=== PATIENT | male | born 1965 | race Caucasian/White ===

== ENCOUNTER 2020-03-27 14:50 | Inpatient (IN) | payer OTHER, SELFPAY ==
--- NOTE | ~2020-03-27 | XR_ITS ---
EXAMINATION: XR CHEST CLINICAL INFORMATION: Seizure COMPARISON: None TECHNIQUE: AP portable view of the chest was obtained. FINDINGS: There is no evidence of acute parenchymal disease, pneumothorax, or pleural effusion. Heart normal size. No evidence of pulmonary edema. Old healed fractures evident. XR/XR chest 1V IMPRESSION: No acute disease.
--- NOTE | ~2020-03-27 | CT_ITS ---
EXAMINATION: CT HEAD/BRAIN WITHOUT CONTRAST CLINICAL INFORMATION: Seizure COMPARISON: None. TECHNIQUE: CT scanning from base of skull to vertex performed without IV contrast administration. This CT examination was performed using dose optimization techniques as appropriate, variously including the following: *Automated exposure control *Adjustment of mA and/or kV according to patient size (this includes techniques or standardized protocols for targeted exams where dose is matched to indication/reason for exam; i.e. extremities or head) *Use of iterative reconstruction technique DLP: 739.74 mGy-cm. FINDINGS: There is what appears to be a left frontal parietal infarct which appears old without significant mass effect or midline structure shift. No intracranial hemorrhage is appreciated. No abnormal extra-axial fluid collection. A calcification is seen within the region of encephalomalacia. There is a dense left middle cerebral artery branch and acute on chronic infarct is not excluded however there are other bilateral vascular branches which appear dense and this may not represent an acute process.. There also appears to been an old right cerebellar infarct. There is some periventricular white matter low density consistent with microangiopathy. Calcification of vertebral and carotid arteries present. There is prominence of ventricles, sulci, and cisterns consistent with generalized atrophy. There is some mucosal thickening seen within the paranasal sinuses bilaterally. There is a small air-fluid level seen within the sphenoid sinuses may be related to acute sinusitis. Mastoid air cells are aerated. 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 Question dense left middle cerebral artery branch which may represent acute on chronic infarct but this appears less likely than just an old infarct and if clinically indicated CTA may be of help in further evaluation. 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 TECHNIQUE: Thin helical images with sagittal and coronal reformats. This CT examination was performed using dose optimization techniques as appropriate, variously including the following: *Automated exposure control *Adjustment of mA and/or kV according to patient size (this includes techniques or standardized protocols for targeted exams where dose is matched to indication/reason for exam; i.e. extremities or head) *Use of iterative reconstruction technique DOSE: DLP 359.48 mGy-cm. FINDINGS: No abnormal prevertebral soft tissue swelling is seen. No acute cervical spine fracture is noted. Paraspinal fat planes appear intact. There is degenerative disc space narrowing and spurring seen at the C5-C6 level. There is spurring of joints of Luschka right greater than left at the C5-C6 level causing some mild anterior neural foraminal encroachment. Visualized portions of the temporomandibular joints unremarkable. Pterygoid plates intact. IMPRESSION: No acute cervical spine fracture. Degenerative disc disease C5-C6 level.
--- NOTE | ~2020-03-27 | CT_ITS ---
EXAMINATION: CT ANGIOGRAM HEAD CT ANGIOGRAM NECK CLINICAL INFORMATION: Seizure. Abnormal head CT. COMPARISON: CT head and cervical spine from 03/27/2020. TECHNIQUE: Initial noncontrast optometric technician imaging of the head and neck was performed. Comparison is made with noncontrast head CT from earlier today. Test bolus sequences followed by intravenous administration 70 mL of Omnipaque 350. Helical imaging was performed in the axial plane from the aortic arch to the skull vertex. Delayed postcontrast imaging of the head was also performed. The data was processed at the certified ophthalmic technologist's workstation for generation of MIP sequences. Angled MIPs and volume rendered reformatted images were also generated at an offline 3D workstation. Stenoses are assessed in accordance with NASCET criteria unless otherwise indicated. DLP: 1503 mGy-cm FINDINGS: CT Head: There is no evidence of acute intracranial hemorrhage chronic encephalomalacia or edematous territorial infarction. Moderate scattered hypoattenuation in the periventricular and deep white matter. Chronic appearing encephalomalacia throughout the left frontal lobe. No evidence of additional loss of whittington-white matter differentiation. Proportional prominence of the ventricles and sulcal spaces. No evidence for obstructive hydrocephalus. No abnormal mass effect or midline shift. No extra-axial fluid collections. No pathologic intra-axial enhancement or regional oligemia. No acute soft tissue or osseous abnormalities. Moderate mucosal thickening of the paranasal sinuses. The mastoid air cells and middle ear cavities are clear. CT Neck: The thyroid gland and remaining cervical soft tissues are within normal limits. Moderate degenerative disc disease from C3-C6 with disc-osteophyte complex formation. Facet and uncovertebral joint arthropathy with osseous encroachment on the neural foramina at C5-C6. CT Upper Chest: The visualized lung apices and upper mediastinum are within normal limits. Neck CTA: Aortic Arch: Normal contour and caliber. Classic 3 vessel branching pattern of the aortic arch. Great Vessel Origins: No significant stenosis of the branch origins. Right Common Carotid Artery: Normal opacification without focal stenosis or occlusion. Cervical Right Internal Carotid Artery: Mild calcific atherosclerotic disease of the carotid bulb and proximal internal carotid artery without flow-limiting stenosis. Left Common Carotid Artery: Normal opacification without focal stenosis or occlusion. Cervical Left Internal Carotid Artery: Mild calcific atherosclerotic disease of the carotid bulb and proximal internal carotid artery without flow-limiting stenosis. Cervical Right Vertebral Artery: Normal opacification without focal stenosis or occlusion. Cervical Left Vertebral Artery: Dominant. Normal opacification without focal stenosis or occlusion. Brain CTA: Intracranial Internal Carotid Arteries: Mild calcific atherosclerotic disease of the intracranial internal carotid arteries without occlusion or flow-limiting stenosis. Normal contrast opacification of the petrous, cavernous, paraophthalmic, and supraclinoid segments of the internal carotid arteries without focal stenosis. Right Anterior Cerebral Artery: Normal A1 segment. Normal opacification of the distal segments of the GREYSON. Left Anterior Cerebral Artery: Normal A1 segment. Normal opacification of the distal segments of the GREYSON. Anterior Communicating Artery: Normal. Right Middle Cerebral Artery: Normal opacification of the M1 segment of the MCA without focal stenosis or occlusion. Normal arborization of the distal segments. Left Middle Cerebral Artery: Normal opacification of the M1 segment of the MCA without focal stenosis or occlusion. Normal arborization of the distal segments. Right Vertebral Artery: Normal opacification of the V4 segment. Normal opacification of the proximal segments of the posterior inferior cerebellar artery. Left Vertebral Artery: Normal opacification of the V4 segment. The posterior inferior cerebellar artery is not well opacified; however, there is no CT evidence of acute occlusion. Basilar Artery: Normal opacification without focal stenosis or occlusion. Normal appearance of the proximal superior cerebellar arteries. Right Posterior Cerebral Artery: Normal P1 segment. Normal opacification of the distal segments of the FAMILY MEDIATOR. Left Posterior Cerebral Artery: Normal P1 segment. Normal posterior communicating artery. Normal opacification of the distal segments of the FAMILY MEDIATOR. Normal opacification of the superior sagittal, straight, transverse, and sigmoid sinuses. CT/CT angio head neck IMPRESSION: 1. No evidence of acute intracranial hemorrhage or edematous territorial infarction. Chronic encephalomalacia of the left frontal lobe. Moderate nonspecific white matter disease. 2. CTA of the head and neck without proximal occlusion or flow-limiting stenosis.
[2020-03-27 15:08] VITALS: BP 168/98; PULSE 73; RESP 15; TEMP 36.2; O2SAT 97; O2SAT 99; BMI 27.7
--- NOTE | 2020-03-27 15:18 | ECG_ITS ---
Test Reason : SEIZURE Blood Pressure : / mmHG Vent. Rate : 066 BPM Atrial Rate : 066 BPM P-R Int : 152 ms QRS Dur : 090 ms QT Int : 394 ms P-R-T Axes : 026 065 059 degrees QTc Int : 413 ms Normal sinus rhythm Normal ECG No previous ECGs available Referred By: Soy Alexander Electronically Signed By:Mumtaz Robison
[2020-03-27 17:04] LABS: MANUAL DIFF FLAG NO
[2020-03-27 17:05] LABS: Basophils Absolute Auto 0.1 X10*3/uL (0.0-0.2); Basophils Percent Auto 0.5 % (0-2); Eosinophils Percent Auto 0.2 % (0-4); Hematocrit 41.7 % (42-52); Hemoglobin 14.2 g/dl (14.0-18.0); Imm Gran Abs Auto 0.04 X10*3/uL (0.00-0.03); Imm Gran Pct Auto 0.4 % (0.0-0.4); Lymphocytes Absolute Auto 0.8 X10*3/uL (1.2-4.9); Lymphocytes Percent Auto 8.3 % (20-40); Mean Corpuscular HGB Conc 34.1 g/dl (31.0-36.0); Mean Corpuscular Hemoglobin 33.1 pg (27.0-33.0); Mean Corpuscular Volume 97.2 fL (80-98); Mean Platelet Volume 8.8 fL (9.4-12.4); Monocytes Absolute Auto 0.3 X10*3/uL (0.1-1.2); Monocytes Percent Auto 3.4 % (2-11); Neutrophils Absolute Auto 8.1 X10*3/uL (2.0-8.3); Neutrophils Percent Auto 87.2 % (45-73); Platelet Count 226 X10*3/uL (160-400); Red Blood Count 4.29 X10*6/uL (4.60-5.80); White Blood Count 9.2 X10*3/uL (4.8-10.8)
[2020-03-27 17:11] LABS: INTERNATIONAL NORM RATIO 0.9 (0.9-1.1); Prothrombin Time 10.4 SEC (10.8-13.0)
[2020-03-27 17:14] LABS: Partial Thromboplastin Time 27.6 SEC (24.1-38.0)
[2020-03-27 17:25] LABS: COVID-19 Test Negative (Negative); IDNOW Serial# 9DD0AD1C
[2020-03-27 17:27] LABS: Ethanol < 10 mg/dL
--- NOTE | 2020-03-27 17:29 | ED_ITS ---
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 Apparently he has a history of seizures as well as alcohol abuse. Upon arrival history very limited secondary to the postictal state and being medicated I spoke to his mother Jessica whom I called from his cell phone as he has no prior visits here at [phone] States to me that patient has had history of seizure since 2014 after suffering a head injury and has been on Lamictal and Keppra there is some compliance issue with this also he is a known alcoholic and will occasionally binge drink states when he stops drinking he will also have seizures and she knows that he drank a couple days ago but has not seen him as these and now and does not drink around her. <Soy Alexander NP - Last Filed: 03/27/20 18:57> MD complaint: seizure <Soy Alexander NP - Last Filed: 03/27/20 18:57> Onset (ago): minute(s) <Soy Alexander NP - Last Filed: 03/27/20 18:57> Description of Episode: loss of consciousness and tonic-clonic movement <Soy Alexander NP - Last Filed: 03/27/20 18:57> -: minutes(s) <Soy Alexander NP - Last Filed: 03/27/20 18:57> Witnessed: Yes - by EMS <Soy Alexander NP - Last Filed: 03/27/20 18:57> Seizure History: Yes <Soy Alexander NP - Last Filed: 03/27/20 18:57> Place: Was at a construction site with his friends <Soy Alexander NP - Last Filed: 03/27/20 18:57> Possible Precipitating Event: none <Soy Alexander NP - Last Filed: 03/27/20 18:57> Treatments prior to arrival: other (Versed IV 6 mg) <Soy Alexander NP - Last Filed: 03/27/20 18:57> Related Data Home Medications: Home Medications Medication Instructions Recorded Confirmed amlodipine 2.5 mg PO DAILY 03/27/20 03/27/20 levetiracetam 1,500 mg PO BID 03/27/20 03/27/20 oxcarbazepine 450 mg PO BID 03/27/20 03/27/20 <Soy Alexander NP - Last Filed: 03/27/20 18:57> Allergies/Adverse Reactions: Allergies Allergy/AdvReac Type Severity Reaction Status Date / Time No Known Allergies Allergy Verified 03/27/20 15:17 <Soy Alexander NP - Last Filed: 03/27/20 18:57> Review of Systems Review of Systems: Yes Unobtainable due to mental condition and Unobtainable due to mental status <Soy Alexander NP - Last Filed: 03/27/20 18:57> [facility] Social History Social History: Social History Alcohol intake: never Smoking Status: Never smoker Use of substances other than those prescribed or required for medical reasons: No Advance Directives: No Advance Directives Information Provided: Yes <Soy Alexander NP - Last Filed: 03/27/20 18:57> Physical Exam Vital Signs: Vital Signs: Last Vital Signs Temp 97.2 F 03/27/20 15:08 Pulse 68 03/27/20 19:18 Resp 12 03/27/20 19:18 BP 161/83 H 03/27/20 19:18 Pulse Ox 100 03/27/20 19:18 Body Mass Index 27.7 Reviewed <Soy Alexander NP - Last Filed: 03/27/20 18:57> Vital Signs: Last Vital Signs Temp 97.2 F 03/27/20 15:08 Pulse 68 03/27/20 19:18 Resp 12 03/27/20 19:18 BP 161/83 H 03/27/20 19:18 Pulse Ox 100 03/27/20 19:18 Body Mass Index 27.7 <PINA Bello - Last Filed: 03/27/20 20:42> Const: Other: Postictal appearing <Soy RICHARD Alexander - Last Filed: 03/27/20 18:57> General: lethargic <[facility] RICHARD Alexander - Last Filed: 03/27/20 18:57> Nutritional Appearance: average body habitus <Soy RICHARD Alexander - Last Filed: 03/27/20 18:57> Orientation/consciousness: lethargic <[facility] RICHARD Alexander - Last Filed: 03/27/20 18:57> HENMT: Head: Yes normal to inspection <[facility] RICHARD Alexander - Last Filed: 03/27/20 18:57> Ears: hearing grossly normal bilaterally <[facility] RICHARD Alexander - Last Filed: 03/27/20 18:57> Eyes: General: appearance normal, both eyes and all related structures <Soy RICHARD Alexander - Last Filed: 03/27/20 18:57> Visual Wood: normal visual wood by confrontation <[facility] RICHARD Alexander - Last Filed: 03/27/20 18:57> Neck: Neck: Yes normal visual inspection, No positive Brudzinski's sign, No positive Kernig's sign and No tender <Syo RICHARD Alexander - Last Filed: 03/27/20 18:57> Thyroid: Thyroid normal <[facility] RICHARD Alexander - Last Filed: 03/27/20 18:57> Chest: Chest palpation & inspection: normal inspection of the chest <Soy RICHARD Alexander - Last Filed: 03/27/20 18:57> Resp: Effort & Inspection: normal respiratory effort <[facility] RICHARD Alexander - Last Filed: 03/27/20 18:57> Auscultation: clear to auscultation bilaterally <Soy RICHARD Alexander - Last Filed: 03/27/20 18:57> Cardio: Jugular venous distension: no JVD <Soy RICHARD Alexander - Last Filed: 03/27/20 18:57> Rhythm: regular rhythm <Soy RICHARD Alexander - Last Filed: 03/27/20 18:57> Heart sounds: S1 normal heart sound present and S2 normal heart sound present <Soy RICHARD Alexander - Last Filed: 03/27/20 18:57> GI: Inspection: Yes normal to inspection <Soy RICHARD Alexander - Last Filed: 03/27/20 18:57> Palpation (GI): Soft to palpation <Soy RICHARD Alexander - Last Filed: 03/27/20 18:57> Percussion: Yes normal to percussion <Soy RICHARD Alexander - Last Filed: 03/27/20 18:57> Auscultation: normal bowel sounds <Soyluis Alexander NP - Last Filed: 03/27/20 18:57> : General: Yes no CVA tenderness <Soyluis Alexander NP - Last Filed: 03/27/20 18:57> Back/Spine/Pelvis: Back: no CVA tenderness <Soyluis Alexander NP - Last Filed: 03/27/20 18:57> Skin: General skin exam: no rashes or lesions noted <Soyluis Alexander NP - Last Filed: 03/27/20 18:57> Extrem: General: Yes normal to inspection <Soyluis Alexander NP - Last Filed: 03/27/20 18:57> Course Course Course Narrative: Case was signed out to me at 18:30 by 5 nurse practitioner Benjamin to follow CT a in a patient who was having a prolonged post ictal. After a seizure and potential alcohol withdrawal CTA did not have any acute findings, patient is still confused but did understand he would be admitted to the hospital, case was discussed with hospitalist who accepted the admission and patient was admitted to the hospital, there is a full no written by RICHARD Alexander <PINA Bello - Last Filed: 03/27/20 20:42> Reevaluation(s) Reevaluation #1: Still appears postictal I spoke to his mother agreeable that he needs to be admitted for observation. He is more lucid however he just keeps saying no to all answers. Speech intelligible. He is saying no to admission however he is unable to make his own decisions given his current state. Given dose of IV Ativan plan remains for admission. <Soy Alexander NP - Last Filed: 03/27/20 18:57> MDM - Seizure MDM Narrative Medical decision making narrative: In review 55-year-old male with known history of seizures on Lamictal and Keppra question compliance with this also history of alcohol abuse presenting with 3 seizures of about 5 minutes long in the course of a half an hour witnessed by EMS requiring 6 mg of IV Versed arriving in postictal state apparently has history of seizures in the setting of this as well as the withdrawal. Given dose of Keppra. History limited given that he is in postictal state CT of the head and neck along with chest x-ray and labs done given no prior history here. 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 Question dense left middle cerebral artery branch which may represent acute on chronic infarct but this appears less likely than just an old infarct and if clinically indicated CTA may be of help in further evaluation. Case discussed with attending agreeable to obtaining CT angio plan for admission. Case discussed with Kasia hospitalist requesting awaiting the results of the CTA head neck prior to accepting patient to service. 1814 Patient remains stable awaiting results of the CT angio. I will sign out case to Mary RAMOS pending these results and plan for admission. Aware that I spoken to the hospitalist team and aware the patient. <Soy Alexander NP - Last Filed: 03/27/20 18:57> Differential Diagnosis Differential diagnosis: Likely intractable seizure disorder and generalized seizure (Alcohol withdrawal, electrolyte derangement,); Unlikely febrile convulsion, focal seizure, new onset seizure, epileptic seizure and status epilepticus <Soy Alexander NP - Last Filed: 03/27/20 18:57> Medical Records Attestation: I reviewed the patient's medical records. <Soy Alexander NP - Last Filed: 18:57> Lab Data Attestation: I reviewed the patient's lab results. <RICHARD Grace Last Filed: 03/12 07/30 18:57> Result diagrams: : 03/27/20 16:57 03/27/20 16:57 <Soy Alexander [employer] [facility] - Last Filed: 03/27/20 18:57> Labs: Lab Results 03/27/20 03/27/20 03/27/20 Range/Units 16:57 16:57 16:57 WBC 9.2 (4.8-10.8) X10*3/uL RBC 4.29 L (4.60-5.80) X10*6/uL Hgb 14.2 (14.0-18.0) g/dl Hct 41.7 L (42-52) % MCV 97.2 (80-98) fL MCH 33.1 H (27.0-33.0) pg MCHC 34.1 (31.0-36.0) g/dl RDW 13.0 (11.0-16.0) % Plt Count 226 (160-400) X10*3/uL MPV 8.8 L (9.4-12.4) fL Immature Gran % (Auto) 0.4 (0.0-0.4) % Neut % (Auto) 87.2 H (45-73) % Lymph % (Auto) 8.3 L (20-40) % [place] % (Auto) 3.4 (2-11) % Eos % (Auto) 0.2 (0-4) % Baso % (Auto) 0.5 (0-2) % Lymph # (Auto) 0.8 L (1.2-4.9) X10*3/uL [place] # (Auto) 0.3 (0.1-1.2) X10*3/uL Eos # (Auto) 0.0 (0.0-0.4) X10*3/uL Baso # (Auto) 0.1 (0.0-0.2) X10*3/uL Abs Immat Gran (auto) 0.04 H (0.00-0.03) X10*3/uL Absolute Neuts (auto) 8.1 (2.0-8.3) X10*3/uL Absolute Nucleated RBC 0.000 (0.0-0.012) X10*3/uL Nucleated RBC % (auto) 0.0 (0.0-0.2) /100WBC PT 10.4 L (10.8-13.0) SEC INR 0.9 (0.9-1.1) APTT 27.6 (24.1-38.0) SEC Sodium 140 (135-145) mmol/L Potassium 4.2 (3.3-5.1) mmol/L Chloride 106 (96-108) mmol/L Carbon Dioxide 25 (22-29) mmol/L Anion Gap 13 (12-20) BUN 11 (9-16) mg/dL Creatinine 0.81 (0.5-1.4) mg/dL Estim Creat Clear Calc 117.8 Estimated GFR > 60 Random Glucose 89 (60-115) mg/dL Calcium 8.9 (8.4-10.2) mg/dL Magnesium 2.0 (1.6-2.6) mg/dL Total Bilirubin 0.7 (0.0-1.0) mg/dL AST 26 (5-37) U/L ALT 16 (0-40) U/L Alkaline Phosphatase 64 (39-117) U/L Troponin I High Sens (<3.5-35.0) ng/L Total Protein 6.8 (6.5-8.0) g/dL Albumin 4.3 (3.5-5.0) g/dL Urine Color Urine Appearance Urine pH (5.0-8.0) Ur Specific [place] (1.005-1.025) Urine Protein (NEG-TRACE) MG/DL Urine Glucose (UA) (NEG) MG/DL Urine Ketones (NEG) MG/DL Urine Blood (NEG) Urine Nitrite (NEG) Ur Leukocyte Esterase (NEG) Urine RBC (0) /HPF Urine WBC (0-4) /HPF Ur Squamous Epith Cells /LPF Urine Bacteria /LPF Urine Opiates Screen (Not Detect) Ur Barbiturates Screen (Not Detect) Ur Phencyclidine Scrn (Not Detect) Ur Amphetamines Screen (Not Detect) U Benzodiazepines Scrn (Not Detect) Urine Cocaine Screen (Not Detect) U Marijuana (THC) Screen (Not Detect) Ethyl Alcohol mg/dL COVID-19 (VIPIN) (Negative) COVID-19 Clin Com 03/27/20 03/27/20 03/27/20 Range/Units 16:57 16:57 16:57 WBC (4.8-10.8) X10*3/uL RBC (4.60-5.80) X10*6/uL Hgb (14.0-18.0) g/dl Hct (42-52) % MCV (80-98) fL MCH (27.0-33.0) pg MCHC (31.0-36.0) g/dl RDW (11.0-16.0) % Plt Count (160-400) X10*3/uL MPV (9.4-12.4) fL Immature Gran % (Auto) (0.0-0.4) % Neut % (Auto) (45-73) % Lymph % (Auto) (20-40) % [place] % (Auto) (2-11) % Eos % (Auto) (0-4) % Baso % (Auto) (0-2) % Lymph # (Auto) (1.2-4.9) X10*3/uL [place] # (Auto) (0.1-1.2) X10*3/uL Eos # (Auto) (0.0-0.4) X10*3/uL Baso # (Auto) (0.0-0.2) X10*3/uL Abs Immat Gran (auto) (0.00-0.03) X10*3/uL Absolute Neuts (auto) (2.0-8.3) X10*3/uL Absolute Nucleated RBC (0.0-0.012) X10*3/uL Nucleated RBC % (auto) (0.0-0.2) /100WBC PT (10.8-13.0) SEC INR (0.9-1.1) APTT (24.1-38.0) SEC Sodium (135-145) mmol/L Potassium (3.3-5.1) mmol/L Chloride (96-108) mmol/L Carbon Dioxide (22-29) mmol/L Anion Gap (12-20) BUN (9-16) mg/dL Creatinine (0.5-1.4) mg/dL Estim Creat Clear Calc Estimated GFR Random Glucose (60-115) mg/dL Calcium (8.4-10.2) mg/dL Magnesium (1.6-2.6) mg/dL Total Bilirubin (0.0-1.0) mg/dL AST (5-37) U/L ALT (0-40) U/L Alkaline Phosphatase (39-117) U/L Troponin I High Sens 6.0 (<3.5-35.0) ng/L Total Protein (6.5-8.0) g/dL Albumin (3.5-5.0) g/dL Urine Color Urine Appearance Urine pH (5.0-8.0) Ur Specific [place] (1.005-1.025) Urine Protein (NEG-TRACE) MG/DL Urine Glucose (UA) (NEG) MG/DL Urine Ketones (NEG) MG/DL Urine Blood (NEG) Urine Nitrite (NEG) Ur Leukocyte Esterase (NEG) Urine RBC (0) /HPF Urine WBC (0-4) /HPF Ur Squamous Epith Cells /LPF Urine Bacteria /LPF Urine Opiates Screen (Not Detect) Ur Barbiturates Screen (Not Detect) Ur Phencyclidine Scrn (Not Detect) Ur Amphetamines Screen (Not Detect) U Benzodiazepines Scrn (Not Detect) Urine Cocaine Screen (Not Detect) U Marijuana (THC) Screen (Not Detect) Ethyl Alcohol < 10 mg/dL COVID-19 (VIPIN) Negative (Negative) COVID-19 Clin Com See Note 03/27/20 03/27/20 Range/Units 19:52 19:52 WBC (4.8-10.8) X10*3/uL RBC (4.60-5.80) X10*6/uL Hgb (14.0-18.0) g/dl Hct (42-52) % MCV (80-98) fL MCH (27.0-33.0) pg MCHC (31.0-36.0) g/dl RDW (11.0-16.0) % Plt Count (160-400) X10*3/uL MPV (9.4-12.4) fL Immature Gran % (Auto) (0.0-0.4) % Neut % (Auto) (45-73) % Lymph % (Auto) (20-40) % [place] % (Auto) (2-11) % Eos % (Auto) (0-4) % Baso % (Auto) (0-2) % Lymph # (Auto) (1.2-4.9) X10*3/uL [place] # (Auto) (0.1-1.2) X10*3/uL Eos # (Auto) (0.0-0.4) X10*3/uL Baso # (Auto) (0.0-0.2) X10*3/uL Abs Immat Gran (auto) (0.00-0.03) X10*3/uL Absolute Neuts (auto) (2.0-8.3) X10*3/uL Absolute Nucleated RBC (0.0-0.012) X10*3/uL Nucleated RBC % (auto) (0.0-0.2) /100WBC PT (10.8-13.0) SEC INR (0.9-1.1) APTT (24.1-38.0) SEC Sodium (135-145) mmol/L Potassium (3.3-5.1) mmol/L Chloride (96-108) mmol/L Carbon Dioxide (22-29) mmol/L Anion Gap (12-20) BUN (9-16) mg/dL Creatinine (0.5-1.4) mg/dL Estim Creat Clear Calc Estimated GFR Random Glucose (60-115) mg/dL Calcium (8.4-10.2) mg/dL Magnesium (1.6-2.6) mg/dL Total Bilirubin (0.0-1.0) mg/dL AST (5-37) U/L ALT (0-40) U/L Alkaline Phosphatase (39-117) U/L Troponin I High Sens (<3.5-35.0) ng/L Total Protein (6.5-8.0) g/dL Albumin (3.5-5.0) g/dL Urine Color YELLOW Urine Appearance CLEAR Urine pH 7.0 (5.0-8.0) Ur Specific [place] 1.020 (1.005-1.025) Urine Protein NEG (NEG-TRACE) MG/DL Urine Glucose (UA) NEG (NEG) MG/DL Urine Ketones NEG (NEG) MG/DL Urine Blood NEG (NEG) Urine Nitrite NEG (NEG) Ur Leukocyte Esterase NEG (NEG) Urine RBC 0-2 (0) /HPF Urine WBC 0-2 (0-4) /HPF Ur Squamous Epith Cells TRACE /LPF Urine Bacteria TRACE /LPF Urine Opiates Screen Not Detected (Not Detect) Ur Barbiturates Screen Not Detected (Not Detect) Ur Phencyclidine Scrn Not Detected (Not Detect) Ur Amphetamines Screen Not Detected (Not Detect) U Benzodiazepines Scrn POSITIVE H (Not Detect) Urine Cocaine Screen Not Detected (Not Detect) U Marijuana (THC) Screen POSITIVE H (Not Detect) Ethyl Alcohol mg/dL COVID-19 (VIPIN) (Negative) COVID-19 Clin Com <Soy Benjamin [employer] [facility] - Last Filed: 03/27/20 18:57> Lab Results 03/27/20 03/27/20 03/27/20 Range/Units 16:57 16:57 16:57 WBC 9.2 (4.8-10.8) X10*3/uL RBC 4.29 L (4.60-5.80) X10*6/uL Hgb 14.2 (14.0-18.0) g/dl Hct 41.7 L (42-52) % MCV 97.2 (80-98) fL MCH 33.1 H (27.0-33.0) pg MCHC 34.1 (31.0-36.0) g/dl RDW 13.0 (11.0-16.0) % Plt Count 226 (160-400) X10*3/uL MPV 8.8 L (9.4-12.4) fL Immature Gran % (Auto) 0.4 (0.0-0.4) % Neut % (Auto) 87.2 H (45-73) % Lymph % (Auto) 8.3 L (20-40) % [place] % (Auto) 3.4 (2-11) % Eos % (Auto) 0.2 (0-4) % Baso % (Auto) 0.5 (0-2) % Lymph # (Auto) 0.8 L (1.2-4.9) X10*3/uL [place] # (Auto) 0.3 (0.1-1.2) X10*3/uL Eos # (Auto) 0.0 (0.0-0.4) X10*3/uL Baso # (Auto) 0.1 (0.0-0.2) X10*3/uL Abs Immat Gran (auto) 0.04 H (0.00-0.03) X10*3/uL Absolute Neuts (auto) 8.1 (2.0-8.3) X10*3/uL Absolute Nucleated RBC 0.000 (0.0-0.012) X10*3/uL Nucleated RBC % (auto) 0.0 (0.0-0.2) /100WBC PT 10.4 L (10.8-13.0) SEC INR 0.9 (0.9-1.1) APTT 27.6 (24.1-38.0) SEC Sodium 140 (135-145) mmol/L Potassium 4.2 (3.3-5.1) mmol/L Chloride 106 (96-108) mmol/L Carbon Dioxide 25 (22-29) mmol/L Anion Gap 13 (12-20) BUN 11 (9-16) mg/dL Creatinine 0.81 (0.5-1.4) mg/dL Estim Creat Clear Calc 117.8 Estimated GFR > 60 Random Glucose 89 (60-115) mg/dL Calcium 8.9 (8.4-10.2) mg/dL Magnesium 2.0 (1.6-2.6) mg/dL Total Bilirubin 0.7 (0.0-1.0) mg/dL AST 26 (5-37) U/L ALT 16 (0-40) U/L Alkaline Phosphatase 64 (39-117) U/L Troponin I High Sens (<3.5-35.0) ng/L Total Protein 6.8 (6.5-8.0) g/dL Albumin 4.3 (3.5-5.0) g/dL Urine Color Urine Appearance Urine pH (5.0-8.0) Ur Specific [place] (1.005-1.025) Urine Protein (NEG-TRACE) MG/DL Urine Glucose (UA) (NEG) MG/DL Urine Ketones (NEG) MG/DL Urine Blood (NEG) Urine Nitrite (NEG) Ur Leukocyte Esterase (NEG) Urine RBC (0) /HPF Urine WBC (0-4) /HPF Ur Squamous Epith Cells /LPF Urine Bacteria /LPF Urine Opiates Screen (Not Detect) Ur Barbiturates Screen (Not Detect) Ur Phencyclidine Scrn (Not Detect) Ur Amphetamines Screen (Not Detect) U Benzodiazepines Scrn (Not Detect) Urine Cocaine Screen (Not Detect) U Marijuana (THC) Screen (Not Detect) Ethyl Alcohol mg/dL COVID-19 (VIPIN) (Negative) COVID-19 Clin Com 03/27/20 03/27/20 03/27/20 Range/Units 16:57 16:57 16:57 WBC (4.8-10.8) X10*3/uL RBC (4.60-5.80) X10*6/uL Hgb (14.0-18.0) g/dl Hct (42-52) % MCV (80-98) fL MCH (27.0-33.0) pg MCHC (31.0-36.0) g/dl RDW (11.0-16.0) % Plt Count (160-400) X10*3/uL MPV (9.4-12.4) fL Immature Gran % (Auto) (0.0-0.4) % Neut % (Auto) (45-73) % Lymph % (Auto) (20-40) % [place] % (Auto) (2-11) % Eos % (Auto) (0-4) % Baso % (Auto) (0-2) % Lymph # (Auto) (1.2-4.9) X10*3/uL [place] # (Auto) (0.1-1.2) X10*3/uL Eos # (Auto) (0.0-0.4) X10*3/uL Baso # (Auto) (0.0-0.2) X10*3/uL Abs Immat Gran (auto) (0.00-0.03) X10*3/uL Absolute Neuts (auto) (2.0-8.3) X10*3/uL Absolute Nucleated RBC (0.0-0.012) X10*3/uL Nucleated RBC % (auto) (0.0-0.2) /100WBC PT (10.8-13.0) SEC INR (0.9-1.1) APTT (24.1-38.0) SEC Sodium (135-145) mmol/L Potassium (3.3-5.1) mmol/L Chloride (96-108) mmol/L Carbon Dioxide (22-29) mmol/L Anion Gap (12-20) BUN (9-16) mg/dL Creatinine (0.5-1.4) mg/dL Estim Creat Clear Calc Estimated GFR Random Glucose (60-115) mg/dL Calcium (8.4-10.2) mg/dL Magnesium (1.6-2.6) mg/dL Total Bilirubin (0.0-1.0) mg/dL AST (5-37) U/L ALT (0-40) U/L Alkaline Phosphatase (39-117) U/L Troponin I High Sens 6.0 (<3.5-35.0) ng/L Total Protein (6.5-8.0) g/dL Albumin (3.5-5.0) g/dL Urine Color Urine Appearance Urine pH (5.0-8.0) Ur Specific [place] (1.005-1.025) Urine Protein (NEG-TRACE) MG/DL Urine Glucose (UA) (NEG) MG/DL Urine Ketones (NEG) MG/DL Urine Blood (NEG) Urine Nitrite (NEG) Ur Leukocyte Esterase (NEG) Urine RBC (0) /HPF Urine WBC (0-4) /HPF Ur Squamous Epith Cells /LPF Urine Bacteria /LPF Urine Opiates Screen (Not Detect) Ur Barbiturates Screen (Not Detect) Ur Phencyclidine Scrn (Not Detect) Ur Amphetamines Screen (Not Detect) U Benzodiazepines Scrn (Not Detect) Urine Cocaine Screen (Not Detect) U Marijuana (THC) Screen (Not Detect) Ethyl Alcohol < 10 mg/dL COVID-19 (VIPIN) Negative (Negative) COVID-19 Clin Com See Note 03/27/20 03/27/20 Range/Units 19:52 19:52 WBC (4.8-10.8) X10*3/uL RBC (4.60-5.80) X10*6/uL Hgb (14.0-18.0) g/dl Hct (42-52) % MCV (80-98) fL MCH (27.0-33.0) pg MCHC (31.0-36.0) g/dl RDW (11.0-16.0) % Plt Count (160-400) X10*3/uL MPV (9.4-12.4) fL Immature Gran % (Auto) (0.0-0.4) % Neut % (Auto) (45-73) % Lymph % (Auto) (20-40) % [place] % (Auto) (2-11) % Eos % (Auto) (0-4) % Baso % (Auto) (0-2) % Lymph # (Auto) (1.2-4.9) X10*3/uL [place] # (Auto) (0.1-1.2) X10*3/uL Eos # (Auto) (0.0-0.4) X10*3/uL Baso # (Auto) (0.0-0.2) X10*3/uL Abs Immat Gran (auto) (0.00-0.03) X10*3/uL Absolute Neuts (auto) (2.0-8.3) X10*3/uL Absolute Nucleated RBC (0.0-0.012) X10*3/uL Nucleated RBC % (auto) (0.0-0.2) /100WBC PT (10.8-13.0) SEC INR (0.9-1.1) APTT (24.1-38.0) SEC Sodium (135-145) mmol/L Potassium (3.3-5.1) mmol/L Chloride (96-108) mmol/L Carbon Dioxide (22-29) mmol/L Anion Gap (12-20) BUN (9-16) mg/dL Creatinine (0.5-1.4) mg/dL Estim Creat Clear Calc Estimated GFR Random Glucose (60-115) mg/dL Calcium (8.4-10.2) mg/dL Magnesium (1.6-2.6) mg/dL Total Bilirubin (0.0-1.0) mg/dL AST (5-37) U/L ALT (0-40) U/L Alkaline Phosphatase (39-117) U/L Troponin I High Sens (<3.5-35.0) ng/L Total Protein (6.5-8.0) g/dL Albumin (3.5-5.0) g/dL Urine Color YELLOW Urine Appearance CLEAR Urine pH 7.0 (5.0-8.0) Ur Specific [place] 1.020 (1.005-1.025) Urine Protein NEG (NEG-TRACE) MG/DL Urine Glucose (UA) NEG (NEG) MG/DL Urine Ketones NEG (NEG) MG/DL Urine Blood NEG (NEG) Urine Nitrite NEG (NEG) Ur Leukocyte Esterase NEG (NEG) Urine RBC 0-2 (0) /HPF Urine WBC 0-2 (0-4) /HPF Ur Squamous Epith Cells TRACE /LPF Urine Bacteria TRACE /LPF Urine Opiates Screen Not Detected (Not Detect) Ur Barbiturates Screen Not Detected (Not Detect) Ur Phencyclidine Scrn Not Detected (Not Detect) Ur Amphetamines Screen Not Detected (Not Detect) U Benzodiazepines Scrn POSITIVE H (Not Detect) Urine Cocaine Screen Not Detected (Not Detect) U Marijuana (THC) Screen POSITIVE H (Not Detect) Ethyl Alcohol mg/dL COVID-19 (VIPIN) (Negative) COVID-19 Clin Com <PINA Bello - Last Filed: 03/27/20 20:42> Imaging Data Head/neck CT: Radiologist's impression: [address] [id number] Scan ReportSigned Patient: LUIS ALBERTO SEGURA#: [id number]: 1965Acct:[id number]/Sex: 55 / MADM Date: 03/27/20Loc: [email or web address] Dr: Ordering Physician: Soy Alexander NP Date of Service: 03/27/20 Procedure(s): CT cervical spine wo con Accession Number(s): [id number] cc: Soy Alexander NP~ EXAMINATION: CT HEAD/BRAIN WITHOUT CONTRAST CLINICAL INFORMATION: Seizure COMPARISON: None. TECHNIQUE: CT scanning from base of skull to vertex performed without IV contrast administration. This CT examination was performed using dose optimization techniques as appropriate, variously including the following: *Automated exposure control *Adjustment of mA and/or kV according to patient size (this includes techniques or standardized protocols for targeted exams where dose is matched to indication/reason for exam; i.e. extremities or head) *Use of iterative reconstruction technique DLP: 739.74 mGy-cm. FINDINGS: There is what appears to be a left frontal parietal infarct which appears old without significant mass effect or midline structure shift. No intracranial hemorrhage is appreciated. No abnormal extra-axial fluid collection. A calcification is seen within the region of encephalomalacia. There is a dense left middle cerebral artery branch and acute on chronic infarct is not excluded however there are other bilateral vascular branches which appear dense and this may not represent an acute process.. There also appears to been an old right cerebellar infarct. There is some periventricular white matter low density consistent with microangiopathy. Calcification of vertebral and carotid arteries present. There is prominence of ventricles, sulci, and cisterns consistent with generalized atrophy. There is some mucosal thickening seen within the paranasal sinuses bilaterally. There is a small air-fluid level seen within the sphenoid sinuses may be related to acute sinusitis. Mastoid air cells are aerated. 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 Question dense left middle cerebral artery branch which may represent acute on chronic infarct but this appears less likely than just an old infarct and if clinically indicated CTA may be of help in further evaluation. 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 TECHNIQUE: Thin helical images with sagittal and coronal reformats. This CT examination was performed using dose optimization techniques as appropriate, variously including the following: *Automated exposure control *Adjustment of mA and/or kV according to patient size (this includes techniques or standardized protocols for targeted exams where dose is matched to indication/reason for exam; i.e. extremities or head) *Use of iterative reconstruction technique DOSE: DLP 359.48 mGy-cm. FINDINGS: No abnormal prevertebral soft tissue swelling is seen. No acute cervical spine fracture is noted. Paraspinal fat planes appear intact. There is degenerative disc space narrowing and spurring seen at the C5-C6 level. There is spurring of joints of Luschka right greater than left at the C5-C6 level causing some mild anterior neural foraminal encroachment. Visualized portions of the temporomandibular joints unremarkable. Pterygoid plates intact. IMPRESSION: No acute cervical spine fracture. Degenerative disc disease C5-C6 level. Dictated By:SAMANTHA DUNAWAY V MDSigned By:<Electronically signed by SAMANTHA DUNAWAY MD in OV>03/27/20 1635 DD/ 1519TD/TT: Garage Mechanic: SK <Soy Alexander NP - Last Filed: 03/27/20 18:57> Chest x-ray: Radiologist's impression: [address], [place] [address]GKog ReportSigned Patient: LUIS ALBERTO SEGURA#: [id number]: 1965Acct:[id number]/Sex: 55 / MADM Date: 03/27/20Loc: EDAttending Dr: Ordering Physician: Soy Alexander NP Date of Service: 03/27/20 Procedure(s): XR chest 1V Accession Number(s): [id number] cc: Soy Alexander NP~ EXAMINATION: XR CHEST CLINICAL INFORMATION: Seizure COMPARISON: None TECHNIQUE: AP portable view of the chest was obtained. FINDINGS: There is no evidence of acute parenchymal disease, pneumothorax, or pleural effusion. Heart normal size. No evidence of pulmonary edema. Old healed fractures evident. XR/XR chest 1V IMPRESSION: No acute disease. Dictated By:SAMANTHA DUNAWAY V MDSigned By:<Electronically signed by SAMANTHA DUNAWAY MD in OV>03/27/20 1558 DD/ 1518TD/TT: Garage Mechanic: ROBBIE <Soy Alexander NP - Last Filed: 03/27/20 18:57> ECG Data Interpretation: Normal sinus rhythm Rate 66 Normal ECG No previous ECGs available <Soy Alexander NP - Last Filed: 03/27/20 18:57> Discharge Plan Discharge Prescriptions: No Action oxcarbazepine 150 mg tablet 450 mg PO BID RF: 0 levetiracetam 750 mg tablet extended release 24 hr 1,500 mg PO BID RF: 0 amlodipine 5 mg tablet 2.5 mg PO DAILY RF: 0 <Soy Alexander NP - Last Filed: 03/27/20 18:57>
[2020-03-27 17:30] LABS: Alanine Aminotransferase 16 U/L (0-40); Albumin Level 4.3 g/dL (3.5-5.0); Alkaline Phosphatase 64 U/L (39-117); Anion Gap 13 (12-20); Aspartate Amino Transferase 26 U/L (5-37); Bilirubin Total 0.7 mg/dL (0.0-1.0); Blood Urea Nitrogen 11 mg/dL (9-16); Calcium 8.9 mg/dL (8.4-10.2); Carbon Dioxide 25 mmol/L (22-29); Chloride 106 mmol/L (96-108); Creatinine Clr Calc Pharmacy 117.8; Estimated Glomerular Filt Rate > 60; Glucose Random 89 mg/dL (60-115); Potassium 4.2 mmol/L (3.3-5.1); Sodium 140 mmol/L (135-145); Total Protein 6.8 g/dL (6.5-8.0)
--- NOTE | 2020-03-27 17:44 | PC.NURSE ---
@ 1545 pt was noted to be araousable to voice but drowsy. pt not answering quaetions appropriatly . face is symmetrical and pt is moving all 4 ext brsikly and with purpose but pt noted to have constricted pupils with a leftward gaze resps are nonlabored and pt is in nsr. currently pt verbal responses are more appropriate but still confused to place. pt going for cta l gaze no longer present. plan is to admit pt.
[2020-03-27] MEDS: iohexoL 350 MG/ML 100 ML INFUS..BTL IV (18:37)
[2020-03-27] MEDS: levETIRAcetam in NaCl (iso-os) 1,000 MG/100 ML PIGGYBACK 400 MG IV (19:17)
[2020-03-27] MEDS: LORazepam 2 MG/ML VIAL 1 MG IVPUSH (19:17)
[2020-03-27 19:18] VITALS: BP 161/83; PULSE 68; RESP 12; O2SAT 100
--- NOTE | 2020-03-27 19:19 | PC.NURSE ---
PATIENT AGITATED WALKING IN JAMES UNSTEADY GAIT. MULTIPLE STAFF REQUIRED TO GET PATIENT BACK TO BED. KEPPRA INFUSING AT THIS TIME. SINUS RHYTHM ON TEACHER OF FAMILY AND CONSUMER SCIENCE. BREATHING EVEN, NON-LABORED. ONLY WILL SAY NOPE AND NOTHING ELSE TO ALL QUESTIONS ASKED.
[2020-03-27 20:00] VITALS: BP 136/73; PULSE 70; RESP 12; TEMP 36.8; O2SAT 97
[2020-03-27 20:07] LABS: Appearance Urine CLEAR; Color Urine YELLOW; Glucose Urine UA NEG (NEG); Leukocyte Esterase Urine NEG (NEG); Nitrite Urine NEG (NEG); Urine Blood NEG (NEG); Urine Ketones NEG (NEG); Urine Protein NEG (NEG-TRACE)
[2020-03-27 20:21] LABS: Bacteria Urine TRACE /LPF; RBC Urine 0-2 /HPF (0); Squamous Epithelial Cell Urine TRACE /LPF; WBC Urine 0-2 /HPF (0-4)
[2020-03-27 20:24] LABS: Amphetamine Screen Urine Not Detected (Not Detect); Barbiturates, Urine Not Detected (Not Detect); Benzodiazepines Screen Urine POSITIVE (Not Detect); Cannabinoid Screen Urine POSITIVE (Not Detect); Cocaine Screen Urine Not Detected (Not Detect); Opiate Screen Urine Not Detected (Not Detect); Phencyclidine Screen Urine Not Detected (Not Detect)
[2020-03-27] MEDS: levETIRAcetam 500 MG TABLET PO (20:38)
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
[2020-03-27 22:00] VITALS: BP 149/81; PULSE 79; RESP 19; TEMP 36.9; O2SAT 98
[2020-03-27] MEDS: OXcarbazepine 150 MG TABLET 450 MG PO (22:15)
[2020-03-27] MEDS: Dextrose 5 % and 0.45 % NaCl 1,000 ML 100 ML IVCONT (22:15)
--- NOTE | 2020-03-28 | EEG_ITS ---
The waking background activity consists of a well-defined posterior moderate voltage 8 hertz frequency seen predominantly over the right hemisphere with suppression of amplitude over the left hemisphere as well as fairly persistent 2 to 3 hertz low-voltage delta seen in the left frontotemporal region. Photic stimulation is without activation. IMPRESSION: This is an abnormal EEG due to persistent left frontotemporal delta slowing consistent with an underlying structural lesion. No epileptiform discharges seen. MD KATERINA Lugo/CHRISTINA / [id number]
[2020-03-28] MEDS: 0.9 % Sodium Chloride Flush 3 ML SYRINGE IVFLUSH ×2 (00:35→17:29)
[2020-03-28 02:47] VITALS: BP 149/86; PULSE 63; RESP 16; TEMP 36.9; O2SAT 96
[2020-03-28 06:30] VITALS: BP 146/82; PULSE 69; RESP 18; TEMP 36.7; O2SAT 97
--- NOTE | 2020-03-28 06:38 | PC.NURSE ---
pt wants to leave. md aware. per md let day team taken care . montioring for further needs.
[2020-03-28 06:41] LABS: MANUAL DIFF FLAG NO
[2020-03-28 07:02] LABS: Basophils Percent Auto 0.6 % (0-2); Eosinophils Absolute Auto 0.2 X10*3/uL (0.0-0.4); Eosinophils Percent Auto 2.8 % (0-4); Hemoglobin 13.3 g/dl (14.0-18.0); Imm Gran Abs Auto 0.01 X10*3/uL (0.00-0.03); Imm Gran Pct Auto 0.2 % (0.0-0.4); Lymphocytes Absolute Auto 1.5 X10*3/uL (1.2-4.9); Lymphocytes Percent Auto 22.8 % (20-40); Mean Corpuscular HGB Conc 34.1 g/dl (31.0-36.0); Mean Corpuscular Hemoglobin 32.8 pg (27.0-33.0); Mean Corpuscular Volume 96.1 fL (80-98); Mean Platelet Volume 9.1 fL (9.4-12.4); Monocytes Absolute Auto 0.6 X10*3/uL (0.1-1.2); Monocytes Percent Auto 8.6 % (2-11); Neutrophils Absolute Auto 4.2 X10*3/uL (2.0-8.3); Platelet Count 235 X10*3/uL (160-400); Red Blood Count 4.06 X10*6/uL (4.60-5.80); Red Cell Distribution Width 12.8 % (11.0-16.0); White Blood Count 6.4 X10*3/uL (4.8-10.8)
[2020-03-28 07:05] LABS: Anion Gap 13 (12-20); Blood Urea Nitrogen 6 mg/dL (9-16); Calcium 8.6 mg/dL (8.4-10.2); Carbon Dioxide 23 mmol/L (22-29); Chloride 105 mmol/L (96-108); Creatinine Clr Calc Pharmacy 127.2; Estimated Glomerular Filt Rate > 60; Glucose Random 110 mg/dL (60-115); Potassium 3.8 mmol/L (3.3-5.1); Sodium 137 mmol/L (135-145)
--- NOTE | 2020-03-28 08:42 | PC.NURSE ---
DR GONCALVES IN TO SEE PT. NEEDS NEURO CONSULT THIS AM
[2020-03-28] MEDS: levETIRAcetam 500 MG TABLET 1500 MG PO ×2 (09:10→20:42)
[2020-03-28 09:11] VITALS: BP 146/72; PULSE 88
[2020-03-28] MEDS: Folic Acid 1 MG TABLET PO (09:11)
[2020-03-28] MEDS: Thiamine HCL 100 MG TABLET PO (09:11)
[2020-03-28] MEDS: amLODIPine Besylate 2.5 MG TABLET PO (09:11)
[2020-03-28] MEDS: OXcarbazepine 150 MG TABLET 450 MG PO ×2 (09:11→20:42)
--- NOTE | 2020-03-28 11:30 | PC.NURSE ---
DR DUNBAR IN TO SEE PT
--- NOTE | 2020-03-28 11:57 | HO.PM.IMPN ---
Subjective Subjective Date of Service: 03/28/20 Interval History: wants to go home Cardiovascular Cardiovascular: Reports no additional cardiovascular complaints Respiratory Respiratory: Reports no additional respiratory complaints Physical Exam Vital Signs: Vital Signs: Last Vital Signs Temp 98.1 F 03/28/20 06:30 Pulse 88 03/28/20 09:11 Resp 18 03/28/20 06:30 BP 146/72 H 03/28/20 09:11 Pulse Ox 97 03/28/20 06:30 Body Mass Index 27.7 General: Alert, disoriented, no acute distress Resp: CTA bilateral CVS: S1,S2,RRR GI: soft, non tender, non distended Neuro: motor grossly intact Psych: poor insight Objective Data Current Medications Generic Name Dose Route Start Last Admin Trade Name Freq PRN Reason Stop Dose Admin Amlodipine Besylate 2.5 mg 03/28/20 09:00 03/28/20 09:11 Amlodipine Besylate 2.5 Mg Tablet PO 2.5 mg DAILY JASMYN Administration Protocol Docusate Sodium 100 mg 03/27/20 20:43 Docusate Sodium 100 Mg Capsule PO DAILY PRN Constipation Folic Acid 1 mg 03/28/20 09:00 03/28/20 09:11 Folic Acid 1 Mg Tablet PO 1 mg DAILY JASMYN Administration Levetiracetam 1,500 mg 03/28/20 09:00 03/28/20 09:10 Levetiracetam 500 Mg Tablet PO 1,500 mg BID JASMYN Administration Lorazepam 1 mg 03/27/20 20:43 Lorazepam 2 Mg/Ml Vial IVPUSH Q2H PRN Seizures Multivitamins/Minerals 1 tab 03/28/20 09:00 03/28/20 09:11 Multivitamin With Minerals Tablet PO 1 tab DAILY JASMYN Administration Oxcarbazepine 450 mg 03/27/20 21:00 03/28/20 09:11 Oxcarbazepine 150 Mg Tablet PO 450 mg BID JASMYN Administration Pharmacy Consult 1 each 03/27/20 15:17 Consult Rx Perform Med Rec MISCELLANE ONCE PRN Consult order Sodium Chloride 3 ml 03/28/20 00:00 03/28/20 00:35 0.9 % Sodium Chloride Flush 3 Ml Syringe IVFLUSH 3 ml QSHIFT JASMYN Administration Thiamine HCl 100 mg 03/28/20 09:00 03/28/20 09:11 Thiamine Hcl 100 Mg Tablet PO 100 mg DAILY JASMYN Administration Labs CBC & Chem 7: 03/28/20 06:16 03/28/20 06:19 Assessment and Plan (1) Seizure: Status: Acute Assessment and Plan: 55M presented with seizure seizure unclear compliance, active etoh use neuro eval etoh dependnce ciwa htn amlodipine
--- NOTE | 2020-03-28 12:12 | PM.NEUROCN ---
History of Present Illness Data of Consult Service Date: 03/28/20 Primary Care Provider: PINA Mustafa 55 years old man with underlying history of traumatic brain injury and seizure disorder, as per documentation, was brought to hospital after multiple generalized seizures. He was a poor historian stating that he only had a minor event and he was ready to go home now. At the same time he was having difficulty describing his previous history in somewhat of understanding. Apparently he was at his work site where he was noted to have multiple grand mal type of seizures. He could not tell me the name of his neurologist or the name of the hospital neurologist was working. He was also not sure what hospital he was in at this time. Review of Systems Review of Systems: Denies any significant problem. [facility] Social History Social History (Updated 03/28/20 @ 08:15 by Jn Juárez MD) Alcohol intake: current Smoking Status: Never smoker Use of substances other than those prescribed or required for medical reasons: No Advance Directives: No Advance Directives Information Provided: Yes Meds Allergies Allergy/AdvReac Type Severity Reaction Status Date / Time No Known Allergies Allergy Verified 03/27/20 15:17 Active Medications: Current Medications Generic Name Dose Route Start Last Admin Trade Name Freq PRN Reason Stop Dose Admin Amlodipine Besylate 2.5 mg 03/28/20 09:00 03/28/20 09:11 Amlodipine Besylate 2.5 Mg Tablet PO 2.5 mg DAILY JASMYN Administration Protocol Docusate Sodium 100 mg 03/27/20 20:43 Docusate Sodium 100 Mg Capsule PO DAILY PRN Constipation Folic Acid 1 mg 03/28/20 09:00 03/28/20 09:11 Folic Acid 1 Mg Tablet PO 1 mg DAILY JASMYN Administration Levetiracetam 1,500 mg 03/28/20 09:00 03/28/20 09:10 Levetiracetam 500 Mg Tablet PO 1,500 mg BID JASMYN Administration Lorazepam 1 mg 03/27/20 20:43 Lorazepam 2 Mg/Ml Vial IVPUSH Q2H PRN Seizures Multivitamins/Minerals 1 tab 03/28/20 09:00 03/28/20 09:11 Multivitamin With Minerals Tablet PO 1 tab DAILY JASMYN Administration Oxcarbazepine 450 mg 03/27/20 21:00 03/28/20 09:11 Oxcarbazepine 150 Mg Tablet PO 450 mg BID [facility] Administration Pharmacy Consult 1 each 03/27/20 15:17 Consult Rx Perform Med Rec MISCELLANE ONCE PRN Consult order Sodium Chloride 3 ml 03/28/20 00:00 03/28/20 00:35 0.9 % Sodium Chloride Flush 3 Ml Syringe IVFLUSH 3 ml QSHIFT [facility] Administration Thiamine HCl 100 mg 03/28/20 09:00 03/28/20 09:11 Thiamine Hcl 100 Mg Tablet PO 100 mg DAILY [facility] Administration Home Medications Medication Instructions Recorded Confirmed Last Taken Type amlodipine 2.5 mg PO DAILY 03/27/20 03/27/20 Unknown History levetiracetam 1,500 mg PO BID 03/27/20 03/27/20 Unknown History oxcarbazepine 450 mg PO BID 03/27/20 03/27/20 Unknown History Physical Exam Vital Signs: Vital Signs: Last Vital Signs Temp 98.1 F 03/28/20 06:30 Pulse 88 03/28/20 09:11 Resp 18 03/28/20 06:30 BP 146/72 H 03/28/20 09:11 Pulse Ox 97 03/28/20 06:30 Body Mass Index 27.7 He was alert and awake with normal spontaneity of speech fluency comprehension and wake affect. He had some difficulty with hearing. Pupils were equal and reactive to light. External ocular muscles were intact. Face was symmetrical. There was no obvious focal arm or leg weakness. Plantars were flexor. Results Labs CBC & Chem 7: 03/28/20 06:16 03/28/20 06:19 Labs: Short CBC 03/27/20 03/28/20 Range/Units 16:57 06:16 WBC 9.2 6.4 (4.8-10.8) X10*3/uL Hgb 14.2 13.3 L (14.0-18.0) g/dl Hct 41.7 L 39.0 L (42-52) % Plt Count 226 235 (160-400) X10*3/uL BMP 03/27/20 03/28/20 16:57 06:19 Sodium 140 137 Potassium 4.2 3.8 Chloride 106 105 Carbon Dioxide 25 23 BUN 11 6 L Creatinine 0.81 0.75 Calcium 8.9 8.6 Liver Function 03/27/20 Range/Units 16:57 Total Bilirubin 0.7 (0.0-1.0) mg/dL AST 26 (5-37) U/L ALT 16 (0-40) U/L Alkaline Phosphatase 64 (39-117) U/L Albumin 4.3 (3.5-5.0) g/dL Urine 03/27/20 Range/Units 19:52 Urine Color YELLOW Urine Appearance CLEAR Urine pH 7.0 (5.0-8.0) Ur Specific [place] 1.020 (1.005-1.025) Urine Protein NEG (NEG-TRACE) MG/DL Urine Glucose (UA) NEG (NEG) MG/DL His CT and CTA of brain and neck were reviewed. There was no acute pathology. There was no vascular lesion. Encephalomalacia of left frontal lobe and right cerebellum was noted. Assessment and Plan (1) Epilepsy: Status: Acute (2) Encephalomalacia: Status: Acute (3) Breakthrough seizure: Status: Acute 55 years old man with the documented history of traumatic brain injury, head CT revealing a left frontal encephalomalacia and also right cerebellar, presented with multiple convulsions. He has been taking relatively large dose of levetiracetam and oxcarbazepine, which has not been able to prevent these episodes. At this time he was also somewhat confused, likely postictal my recommendation is to keep him here and obtain an EEG to rule out any possibility of subclinical electrical seizures, continue his doses of levetiracetam and oxcarbazepine, and add lacosamide 50 mg twice a day. He should not drive and not be involved in an activity that could put his life in danger such as sitting in a soaking tub alone or swimming alone.
--- NOTE | 2020-03-28 13:37 | PC.NURSE ---
PT REQUESTING TO LEAVE. DR GONCALVES AWARE. WILL BE DOWN TO REASSESS HIM AFTER HIS MEETING. PT AWARE
--- NOTE | 2020-03-28 14:04 | PC.NURSE ---
DR GONCALVES IN TO SPEAK WITH PT
--- NOTE | 2020-03-28 14:53 | PC.NURSE ---
REPORT TO BECCA CAMPOS ON [facility]
--- NOTE | 2020-03-28 14:55 | MHC.CM.PN ---
Attempted to meet with patient in regards to discharge planning. Patient currently sleeping. Spoke with patient's mother, Jessica via telephone at [phone]. Patient lives with Jessica, ambulates independently and had no services prior to coming to hospital. No services anticipated to be needed at discharge because patient is not homebound. Patient suffered a TBI in 2013. Patient has been to [facility] in the past. Copy of HCP obtained from [facility]. Patient's mother will transport him home when medically stable. Continue to monitor for d/c needs.
--- NOTE | 2020-03-28 15:19 | PC.NURSE ---
Patient states does not want an EEG. Has had two done already.
[2020-03-28 15:20] VITALS: BP 121/71; PULSE 71; RESP 17; TEMP 36.9; O2SAT 97
[2020-03-28 16:00] VITALS: BP 128/77; PULSE 60; RESP 20; TEMP 37.1; O2SAT 98
[2020-03-28] MEDS: Lacosamide 100 MG TABLET 50 MG PO (17:28)
[2020-03-28 18:58] VITALS: BP 125/66; PULSE 60; RESP 18; TEMP 36.4; O2SAT 98
[2020-03-28] MEDS: Flu Vacc QS2020-21(6mos up)/PF 0.5 ML SYRINGE IM (20:42)
--- NOTE | 2020-03-28 22:49 | PC.NURSE ---
Patient transferred from [place],sleeping comfortably at present,bed alarm on ,seizure precautions in place
[2020-03-29] VITALS: BP 129/76; PULSE 58; RESP 20; TEMP 36.3; O2SAT 99
[2020-03-29] MEDS: 0.9 % Sodium Chloride Flush 3 ML SYRINGE IVFLUSH ×3 (00:02→15:59)
[2020-03-29 04:00] VITALS: BP 116/62; PULSE 55; RESP 19; TEMP 36.6; O2SAT 98
[2020-03-29 07:33] VITALS: BP 115/78; PULSE 57; RESP 16; TEMP 36.6; O2SAT 98
[2020-03-29] MEDS: Thiamine HCL 100 MG TABLET PO (08:52)
[2020-03-29] MEDS: amLODIPine Besylate 2.5 MG TABLET PO (08:52)
[2020-03-29] MEDS: Lacosamide 100 MG TABLET 50 MG PO (08:53)
[2020-03-29] MEDS: Folic Acid 1 MG TABLET PO (08:53)
[2020-03-29] MEDS: OXcarbazepine 150 MG TABLET 450 MG PO (08:54)
[2020-03-29] MEDS: levETIRAcetam 500 MG TABLET 1500 MG PO (08:54)
--- NOTE | 2020-03-29 09:28 | HO.PM.IMPN ---
Subjective Subjective Date of Service: 03/29/20 Interval History: wants to go home Cardiovascular Cardiovascular: Reports no additional cardiovascular complaints Respiratory Respiratory: Reports no additional respiratory complaints Physical Exam Vital Signs: Vital Signs: Last Vital Signs Temp 97.9 F 03/29/20 07:33 Pulse 57 03/29/20 07:33 Resp 16 03/29/20 07:33 BP 115/78 03/29/20 07:33 Pulse Ox 98 03/29/20 07:33 Body Mass Index 27.7 General: AO X 3, no acute distress Resp: CTA bilateral CVS: S1,S2,RRR GI: soft, non tender, non distended Neuro: motor grossly intact Psych: impaired insight Objective Data Current Medications Generic Name Dose Route Start Last Admin Trade Name Freq PRN Reason Stop Dose Admin Amlodipine Besylate 2.5 mg 03/28/20 09:00 03/29/20 08:52 Amlodipine Besylate 2.5 Mg Tablet PO 2.5 mg DAILY JASMYN Administration Protocol Docusate Sodium 100 mg 03/27/20 20:43 Docusate Sodium 100 Mg Capsule PO DAILY PRN Constipation Folic Acid 1 mg 03/28/20 09:00 03/29/20 08:53 Folic Acid 1 Mg Tablet PO 1 mg DAILY JASMYN Administration Lacosamide 50 mg 03/28/20 13:15 03/29/20 08:53 Lacosamide 100 Mg Tablet PO 50 mg BID JASMYN Administration Levetiracetam 1,500 mg 03/28/20 09:00 03/29/20 08:54 Levetiracetam 500 Mg Tablet PO 1,500 mg BID JASMYN Administration Lorazepam 1 mg 03/27/20 20:43 Lorazepam 2 Mg/Ml Vial IVPUSH Q2H PRN Seizures Multivitamins/Minerals 1 tab 03/28/20 09:00 03/29/20 08:53 Multivitamin With Minerals Tablet PO 1 tab DAILY JASMYN Administration Oxcarbazepine 450 mg 03/27/20 21:00 03/29/20 08:54 Oxcarbazepine 150 Mg Tablet PO 450 mg BID JASMYN Administration Pharmacy Consult 1 each 03/27/20 15:17 Consult Rx Perform Med Rec MISCELLANE ONCE PRN Consult order Sodium Chloride 3 ml 03/28/20 00:00 03/29/20 08:55 0.9 % Sodium Chloride Flush 3 Ml Syringe IVFLUSH 3 ml QSHIFT JASMYN Administration Thiamine HCl 100 mg 03/28/20 09:00 03/29/20 08:52 Thiamine Hcl 100 Mg Tablet PO 100 mg DAILY JASMYN Administration Labs CBC & Chem 7: 03/28/20 06:16 03/28/20 06:19 Assessment and Plan (1) Seizure: Status: Acute Assessment and Plan: 55M presented with seizure seizure unclear compliance, active etoh use neuro appreciated added vimpat follow up eeg etoh dependnce ciwa htn amlodipine
[2020-03-29 11:22] VITALS: BP 131/75; PULSE 56; RESP 15; TEMP 36.8; O2SAT 99
[2020-03-29 16:00] VITALS: BP 142/65; PULSE 62; RESP 18; TEMP 36.4; O2SAT 98
--- NOTE | 2020-03-29 16:39 | P.DS_ITS ---
DS: Providers Provider Date of Service: 03/29/20 Date of admission: 03/27/20 20:44 Primary care physician: PINA Mustafa Consults: 03/27/20 20:38 Consult to Neurology Stat Consulting Provider: [facility] Reason for consultation: Seizures DS: Diagnosis Discharge Diagnosis (1) Seizure: Status: Acute DS: Medications Discharge Medications Home Medications: Home Medications Medication Instructions Recorded Confirmed amlodipine 2.5 mg PO DAILY 03/27/20 03/27/20 levetiracetam 1,500 mg PO BID 03/27/20 03/27/20 oxcarbazepine 450 mg PO BID 03/27/20 03/27/20 Previous Rx's Medication Instructions Recorded lacosamide [Vimpat] 50 mg PO BID #60 tab 03/29/20 DS: Summary Hospital Course Hospital Course: Patient was admitted for seizures. He was seen by neurology recommended starting on Vimpat and continuing Keppra and Trileptal. Patient had an EEG done and results are pending. Patient will follow up outpatient with Neurology. He was monitored for alcohol withdrawal which did not occur. He did not have any further seizures. Time Spent with Patient Time attestation: Total time spent providing and/or coordinating discharge services: Discharge coordination time: Greater than 30 minutes Physical Exam Vital Signs: Vital Signs: Last Vital Signs Temp 97.5 F 03/29/20 16:00 Pulse 62 03/29/20 16:00 Resp 18 03/29/20 16:00 BP 142/65 H 03/29/20 16:00 Pulse Ox 98 03/29/20 16:00 Body Mass Index 27.7 General: AO X 3, no acute distress Resp: CTA bilateral CVS: S1,S2,RRR GI: soft, non tender, non distended Neuro: motor grossly intact Psych: appropriate affect Discharge Plan Discharge Patient Disposition: Home, Self-Care Referrals: Jerardo Sin PA [Primary Care Provider] - Marge aMck MD [Physician] - 1 Week Discharge Medications: New Vimpat 100 mg Tablet 50 mg PO BID Qty: 60 RF: 0 Continued oxcarbazepine 150 mg tablet 450 mg PO BID RF: 0 levetiracetam 750 mg tablet extended release 24 hr 1,500 mg PO BID RF: 0 amlodipine 5 mg tablet 2.5 mg PO DAILY RF: 0 Discharge Orders: Discharge Order (Routine); Ordered 03/29/20 Ordered By: Jn Juárez Activity on Discharge: As tolerated Stand Alone Forms: Patient Portal Discharge page Care Plan Goals: avoid seizures Health Concerns: seizures Plan of Treatment: added vimpat, follow up with neuro for eeg results
== END 2020-03-29 16:54 | disposition home or self-care (01) | DRG 53 ==
LOC: HO.ED 18:49 → HO.EDOVER 20:51 → HO.IMC 03-28 13:11 → HO.EDOVER 03-28 13:41 → HO.IMC 03-28 14:57 → HO.S3 03-28 21:45
PROVIDERS: Nurse Practitioner Primary Care; Admitting Provider Hospitalist; Emergency Provider Internal Medicine; PCP Physician Assistant; Visit Provider Internal Medicine
DX: G40.909 Epilepsy, unspecified, not intractable, without status epilepticus (principal); G93.89 Other specified disorders of brain; S06.890S Other specified intracranial injury without loss of consciousness, sequela; F10.20 Alcohol dependence, uncomplicated; I10 Essential (primary) hypertension; Z20.822 Contact with and (suspected) exposure to COVID-19; X58.XXXS Exposure to other specified factors, sequela; Z23 Encounter for immunization; Z79.899 Other long term (current) drug therapy
CPT/HCPCS: 36415; 70450; 70496; 70498; 71045; 72125; 80048; 80053; 80307; 80320; 81001; 83735; 84484; 85025; 85610; 85730; 87635; 90686; 93005; 95816; 96374; 96375; 99285; J1953; J2060; Q9967